=== PATIENT | male | born 1945 | race Caucasian/White ===

== ENCOUNTER 2017-07-15 13:26 | Emergency (ER) | payer OTHER ==
[~2017-07-15] VITALS: Ht 172.7 cm; Wt 77.7 kg
[~2017-07-15 13:26] MED LIST: ASPIRIN81 M1 PO; ATENOLOL50 MG PO; Benadryl PO; CYMBALTA30 MG PO; DIOVAN40 MG PO; GLIPIZIDE5 M1 PO; LIPITOR40 MG PO; METFORMIN HCL750 M1 PO; PERCOCET 5/31 TABLET PO; PROTONIX40 MG PO; TRAZODONE HCL150 MG PO; UNISOM50 MG PO
[2017-07-15 14:39] LABS: HEMATOCRIT 40.1 % (38.0-50.0); MCH 29.8 PG (29.0-34.0); MCHC 34.9 G/DL (30.0-36.0); MCV 85.3 FL (86-99); MEAN PLAT.VOLUME 11.2 uM^3 (9.0-12.4); PLATELET COUNT 226 K/uL (156-360); RBC DIS.WIDTH-CV 14.2 % (11.8-14.6); RBC DIS.WIDTH-SD 43.7 % (39-53); WHITE BLOOD COUNT 9.5 K/uL (4.1-10.2)
[2017-07-15 14:46] LABS: CHLORIDE 108 mEq/L (99-109); POTASSIUM 4.8 mEq/L (3.7-5.4); SODIUM 137 mEq/L (136-147)
[2017-07-15 14:48] LABS: GLUCOSE 122 mg/dL (70-99)
[2017-07-15 14:49] LABS: ANION GAP 12 MEQ/L (2-14)
[2017-07-15 14:52] LABS: GFR ESTIMATE (CALCULATED) 49 mL/min/ (58.99-99999); UREA NITROGEN (BUN) 34 mg/dL (9-23)
[2017-07-15] MEDS ORDERED: AUGMENTIN875 MG PO (15:56)
[2017-07-15 16:20] VITALS: BP 121/64
== END 2017-07-15 16:21 | disposition home or self-care (01) ==
LOC: EME 13:26
PROVIDERS: Nurse Practitioner Family
DX: S98.131A Complete traumatic amputation of one right lesser toe, initial encounter (principal); X58.XXXA Exposure to other specified factors, initial encounter; E11.40 Type 2 diabetes mellitus with diabetic neuropathy, unspecified; L97.418 Non-pressure chronic ulcer of right heel and midfoot with other specified severity; I10 Essential (primary) hypertension; E78.5 Hyperlipidemia, unspecified; F32.9 Major depressive disorder, single episode, unspecified; I25.2 Old myocardial infarction; Z95.5 Presence of coronary angioplasty implant and graft; Z95.1 Presence of aortocoronary bypass graft; Z79.84 Long term (current) use of oral hypoglycemic drugs; Z79.82 Long term (current) use of aspirin; Z88.5 Allergy status to narcotic agent; Z88.8 Allergy status to other drugs, medicaments and biological substances
CPT/HCPCS: 73630; 80048; 85027; 99281; 99284